=== PATIENT | female | born 1955 | race Caucasian/White ===

== ENCOUNTER 2016-06-20 11:54 | Day surgery (SDC) | payer OTHER ==
[2016-06-20] VITALS (12 sets, daily range): BP systolic 100–135; BP diastolic 41–85; PULSE 36–69; RESP 13–18; O2SAT 97–100
[~2016-06-20] VITALS: Ht 172.7 cm; Wt 89.9 kg
[~2016-06-20 11:54] MED LIST: ASPI-973 PO; CHOL100045 PO; CYAN500 PO; CeFAZolin Inj 2 GM in IV Premix 1 EACH IV ONE; CeFAZolin Inj 2 GM in IV Premix 1 EACH IV SCH; Lactated Ringer's 1,000 ML IV SCH; VITA40TA PO; ZOV800 PO
[2016-06-20] MEDS ORDERED: Rocuronium 10 mg/mL 5 mL Inj ONE (11:55)
[2016-06-20] MEDS ORDERED: Ketamine 10 mg/mL 20 mL Inj ONE (11:55)
[2016-06-20] MEDS ORDERED: Dexamethasone 4 mg/mL Inj ONE (11:55)
[2016-06-20] MEDS ORDERED: fentaNYL-PF 50 mCg/mL 2 mL Inj ONE (11:55)
[2016-06-20] MEDS ORDERED: Neostigmine 1 mg/mL 10 mL Inj ONE (11:55)
[2016-06-20] MEDS ORDERED: Propofol 10,000 mCg/mL 20 mL Inj ONE (11:55)
[2016-06-20] MEDS ORDERED: Ondansetron 2 mg/mL 2 mL Inj ONE (11:55)
[2016-06-20] MEDS ORDERED: Succinylcholine Chloride 20 mg/mL 5 mL Inj ONE (11:55)
[2016-06-20] MEDS ORDERED: Glycopyrrolate 0.2 MG/ML 1mL Inj ONE (11:55)
[2016-06-20] MEDS ORDERED: Lactated Ringer's 1,000 ML IV ONE ×2 (12:00→16:16)
[2016-06-20] MEDS ORDERED: Ondansetron 2 mg/mL 2 mL Inj IVPUSH PRN ×2 (14:40→15:20)
[2016-06-20] MEDS ORDERED: Lactated Ringer's 1,000 ML IV SCH ×2 (14:40→15:20)
[2016-06-20] MEDS ORDERED: Dexamethasone 4 mg/mL Inj IVPUSH PRN ×2 (14:40→15:20)
[2016-06-20] MEDS ORDERED: MetoCLOpramide 5 mg/mL 2 mL Inj IVPUSH PRN ×2 (14:40→15:20)
[2016-06-20] MEDS ORDERED: HYDROmorphone 1 mg/mL Inj IVPUSH PRN ×2 (14:40→15:20)
[2016-06-20] MEDS ORDERED: Phenylephrine 10,000 mCg/mL Inj IVPUSH PRN ×2 (14:40→15:20)
[2016-06-20] MEDS ORDERED: Lactated Ringer's 500 ML IV PRN ×2 (14:40→15:20)
[2016-06-20] MEDS ORDERED: EPHEDrine Sulfate 50 mg/mL Inj IVPUSH PRN ×2 (14:40→15:20)
[2016-06-20] MEDS ORDERED: fentaNYL-PF 50 mCg/mL 2 mL Inj IVPUSH PRN ×2 (14:40→15:20)
--- NOTE | 2016-06-20 14:40 | PCM.HPANE ---
Patient Data Date of Service: June 20, 2016 Surgeon Admitting Provider: Attending Provider:Mandy Dumont MD Primary Care Physician:Adri Frias MD Other Provider:Araceli Barnes Anesthesia Reason for Visit Right Inguinal Hernia Ht/WT & BMI Height (Feet): 5 Height (Inches): 8 Weight (Kilograms): 89.9 Body Mass Index 30.00 Allergies Coded Allergies: No Known Allergies (Verified Allergy, Unknown, 06/20/16) Past Anesthesia History Anesthesia History: Denies:: Abnormal Airway, Anesthesia Reactions, Difficult Intubation, Fam Anesthesia Reaction, Fam Malignant Hypertherm, Malignant Hyperthermia Additional Information: first GA Diabetes History Hx Diabetes?: No MRSA MRSA: No Medications Blood Thinner: Aspirin Home Meds Incl Beta Jay: No Reported Medications Vitamin K2 40 Mcg [id number] Mcg PO DAILY 06/08/16 Cyanocobalamin (Vitamin B12)500 Mcg Tablet1,000 Mcg PO DAILY 06/08/16 Cholecalciferol (Vitamin D3) (Vitamin D)1,000 Unit Capsule1,000 Unit PO DAILY # 1 BOTTLE Ref 0 06/08/16 Acyclovir 800 Mg [id number] Mg PO TID PRN PRN Ref 0 X 5 DAYS 06/08/16 Discontinued Reported Medications Aspirin 81 Mg [id number] Mg PO DAILY Ref 0 06/08/16 History History of ENT Problems?: Yes HEENT History: Denies:: Abnormal Airway Difficult Intubation Hearing Problem Denture Type: None Teeth Condition: Within Normal Limits Hx of Heart Problems?: Yes Cardiovascular History: Positive for:: Chest Pain (R/T HIATAL HERNIA/GERD) Denies:: AICD Heart Murmur Hypertension Pacemaker Hx of Respiratory Problem?: No Respiratory History: Denies:: Use of C-PAP Machine Hx Neurologic Problems?: Yes Neurological History: Denies:: CVA Other Neurological Pertinent: HX HSV Hx of GI Problems?: Yes Other GI Pertinent History: RT INGUINAL HERNIA=CURRENT PROBLEM Hx of Problems?: No Female Hx: Denies:: Currently Skin History: Positive for:: 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) Denies:: Pressure Ulcers Hx Musculoskeletal Problems?: Yes Musculoskeletal History: Positive for:: Musculoskeletal Trauma (C/OF LT FOOT PAIN) Denies:: Back Injury (HX OF NECK STRAIN) Hx of Psycho/Social Problems?: Yes Psycho Social History: Positive for:: Hx Depression Hx Surgeries?: No Hx Any Other Health Problems?: Yes Other History: Positive for:: Thyroid Disease (HX HYPERPARATHYROIDISM) Denies:: Cancer Endocrine Disease Hospitalization History Blood Transfusions: Denies:: Blood Transfusions Hx Diabetes: No Hx Alcohol Use: YesAlcoholic Drinks Per Day: 5/WEEKHave You Smoked inLast 12 mo: No Stop/Bang Treated for Sleep Apnea?: No Do You Have a CPAP Machine?: No S-Snoring: Do You Snore Loudly: No T-Tired: feel tired, fatigued: No O-Obsered: Observed not breath: No P-Blood Pressure: treated: No B- Body Mass Index > 35 kg/m2: No A- Age over 50: Yes N- Neck Large Circumference: No G- Gender Male: No TATI Total Score: 1 TATI Risk Assessment: Low Risk, <3 Yes Risk Assessment Category Category 1A: Patient has history of documented sleep apnea, and HAS NOT received any narcotic, sedative or anesthesia administration during this stay. Category 1B: Patient has history of documented sleep apnea, and HAS received any narcotic , sedative or anesthesia administration during this stay Category 2: Patient has SUSPECTED Obstructive Sleep Apnea, and HAS received any narcotic , sedative or anesthesia administration during this stay. Category 3: Patient has SUSPECTED Obstructive Sleep Apnea and HAS NOT received narcotic, sedative or anesthesia administration during this stay. Category 4: Outpatient in Procedural Areas with known sleep apnea or who screen positive for High Risk via the STOP/BANG questionnaire. Exam Exam Vital Signs Vital Signs Date Time Temp Pulse Resp B/P Pulse Ox O2 Delivery O2 Flow Rate FiO2 06/20/16 12:00 36.0 69 16 123/78 97 Room Air General Appearance: Alert, Oriented X3 HEENT/AIRWAY: MP 2 Lungs: Clear to Auscultation Heart: Exam Unremarkable Meds/Labs/Diagnostics Admission Meds Current Medications Lactated Ringer's (Lr) 1,000 ml @ ud STK-MED ONCE IV Last administered on 06/20t 12:00; Start 06/20/16 at 12:00; Stop 06/20/16 at 12:45; Status DC Plan Impression Patient chart reviewed, patient interviewed and anesthestic plan with risks, benefits, and alternatives discussed, and informed consent obtained. NPO per Anesth. Guidelines: Yes ASA Physical Status: ASA1 Normal Healthy Anesthetic Plan: GA Bene/Risks/Altern/Consents: Yes HP Complete Prior to Induction: Yes Skirball,Cecilio A MD June 20, 2016 14:40
[2016-06-20] MEDS ORDERED: Bupivacaine-MPF 0.5% 30 mL Inj INFILTRATE ONE (15:17)
[2016-06-20] MEDS ORDERED: Atropine 1 mg/10 mL (Code) Syringe ONE (16:48)
[2016-06-20] MEDS ORDERED: oxyCODONE-Acetamin 5-325 mg Tablet PO PRN (16:50)
--- NOTE | 2016-06-20 17:48 | PCM.ANEP1 ---
Post Anesthesia Phase 1 PACU Phase 1 Assessment Date of Service: June 20, 2016 Vital Signs Vital Signs Date Time Temp Pulse Resp B/P Pulse Ox O2 Delivery O2 Flow Rate FiO2 06/20/16 17:30 44 18 132/71 97 06/20/16 17:23 46 13 127/73 97 06/20/16 17:11 42 15 114/73 97 06/20/16 17:00 36 17 113/80 100 06/20/16 16:45 42 14 117/73 98 06/20/16 16:42 53 17 121/81 100 06/20/16 16:36 51 16 111/74 98 06/20/16 16:30 36.6 52 13 100/41 98 Room Air 06/20/16 12:00 36.0 69 16 123/78 97 Room Air Anesthetic Administered: GA Level of Alertness: Awake, talking Pain: No Nausea or Vomiting: No Oxygen Delivery: Room Air Lungs: Clear to Auscultation Complications: No Follow up Care: No Comments PRESS READER called me to bedside to evaluate bradycardia. At that time, all VS were normal and stable and the patient was awake and conversant. She denies chest pain or shortness of breath, nor any lightheadedness. I ordered an EKG which I personally evaluated: no heart block, no ischemia, otherwise normal EKG (sinus rozina). I have advised the RN to watch the patient and ensure no further trend towards increased bradycardia, but otherwise, at this time, I am no suspicious of any potential problems with this otherwise assymptomatic sinus bradycardia. I did advise the patient that should she feel light headed or dizzy, or syncopal at home, that we would want to be made aware, or she should come to the ED. Cecilio Simental MD June 20, 2016 17:48
--- NOTE | 2016-06-20 17:55 | OP ---
[address] [address] OPERATIVE REPORT PATIENT: CHRISTIAN READ : 1955 MR#: [id number] ADMIT: 06/20/2016 JOB ID: [id number] DATE OF SURGERY: 06/20/2016 SURGEON: Mandy Dumont MD PREOPERATIVE DIAGNOSIS(ES): Right inguinal hernia. POSTOPERATIVE DIAGNOSIS(ES): Direct right inguinal hernia. PROCEDURE PERFORMED: Laparoscopic inguinal hernia repair with mesh. RADIAL DRILL PRESS OPERATOR FOR PLASTIC: Xavier Rogers PA-C; Efe Saba, MS3. The presence of an insurance sales assistant was necessary for dissection and retraction. HISTORY OF PRESENT ILLNESS: This is a 61-year-old woman who presented with a right-sided groin bulge and on examination was found to have a right inguinal hernia. Because it was tender, surgery was indicated. FINDINGS: Direct hernia defect without incarceration. DESCRIPTION OF PROCEDURE: The patient was brought to the operating room and placed in supine position. General anesthesia was induced. A warming blanket and SCDs were placed. A Lyons catheter was placed. Antibiotics were infused. Both arms were tucked. The operative field was prepped and draped in a sterile fashion. A pause was performed to confirm the correct patient, procedure, site, and side. A transverse infraumbilical incision was made and the anterior rectus fascia was incised. An 11 mm port was placed with a blunt tip posterior to the rectus abdominis and preperitoneal insufflation commenced. A 0 degree camera was used to develop the preperitoneal space, leaving the epigastric anterior. Two additional 5 mm ports were then placed in the midline below the umbilicus. The preperitoneal space was then developed and dissected with care taken to preserve the epigastrics and to develop a landing zone for the mesh both medially and laterally. This dissection was primarily blunt and good hemostasis was achieved. The hernia defect was seen medial to the epigastrics and the sac was reduced. Scooter's ligament was identified and cleared off. A right-sided piece of Bard 3DMax mesh, medium size, 3.3 x 5.4 inches, was inserted via the infraumbilical port. It was fashioned into the correct location such that the direct defect was well covered. An absorbable tacking device was then used to tack the mesh to Scooter's ligament. The mesh was checked again for appropriate positioning and no sign of wrinkles or creases. A second tack was placed medial to the epigastrics and cephalad to the 1st tack. The ports were removed and the desufflated. The fascia was closed with a running 0 PDS stitch. Skin was closed with 4-0 Monocryl. Local anesthetic was infused at all port seats. Sterile dressings were placed. The patient was awakened from general anesthesia and taken to the postoperative care unit in good condition. SPECIMENS: None. COMPLICATIONS: None. ESTIMATED BLOOD LOSS: 2 mL.
== END 2016-06-20 23:59 | disposition home or self-care (01) ==
LOC: SAS 11:54
PROVIDERS: ATTEND Surgery
DX: K40.90 Unilateral inguinal hernia, without obstruction or gangrene, not specified as recurrent (principal); E21.3 Hyperparathyroidism, unspecified; E66.9 Obesity, unspecified; Z68.30 Body mass index [BMI] 30.0-30.9, adult; Z79.82 Long term (current) use of aspirin
CPT/HCPCS: 49650; 93005; C1781; J0330; J0690; J1100; J1885; J2405; J2710; J3010; J7120